=== PATIENT | male | born 1945 | race Caucasian/White ===

== ENCOUNTER 2017-11-05 05:02 | Day surgery (SDC) | payer OTHER ==
[2017-10-18 09:26] VITALS: BMI 34.4
[2017-11-05] MEDS ORDERED: SUCCINYLCHOLINE CHLORIDE 200 MG/10 ML VIAL ONE (15:17)
[2017-11-05] MEDS ORDERED: MIDAZOLAM HCL 2 MG/2 ML SINGLE DOSE VIAL ONE (15:17)
[2017-11-05] MEDS ORDERED: PROPOFOL 20 ML ONE (15:17)
[2017-11-05] MEDS ORDERED: ceFAZolin SODIUM 1 GM VIAL IVPB ONE (15:26)
[2017-11-05] MEDS ORDERED: DEXAMETHASONE SOD PHOSPHATE 4 MG/1 ML VIAL ONE (15:32)
[2017-11-05] MEDS ORDERED: ceFAZolin SODIUM 1 GM VIAL ONE (15:32)
[2017-11-05] MEDS ORDERED: LIDOCAINE HCL/PF 2% SDV 5ML VIAL ONE (15:32)
[2017-11-05] MEDS ORDERED: oxyCODONE HCL 5 MG TABLET PO PRN (16:09)
[2017-11-05] MEDS ORDERED: ONDANSETRON 4 MG/2 ML VIAL IVPUSH PRN (16:09)
[2017-11-05] MEDS ORDERED: ACETAMINOPHEN 325 MG TABLET (FP) PO PRN (16:10)
[2017-11-05] MEDS ORDERED: LACTATED RINGERS SOLUTION 1,000 ML IV SCH (16:15)
[2017-11-05] MEDS ORDERED: oxyCODONE HCL 5 MG TABLET PO ONE (16:30)
[2017-11-05] MEDS ORDERED: ACETAMINOPHEN 325 MG TABLET (FP) PO ONE (16:30)
[2017-11-05 17:07] VITALS: TEMP 98.3
--- NOTE | 2017-11-05 18:35 | OP ---
DATE OF OPERATION: 11/05/2017 PREOPERATIVE DIAGNOSIS: Left tense hydrocele. POSTOPERATIVE DIAGNOSIS: Left tense hydrocele. OPERATIVE PROCEDURE: Left hydrocelectomy. ANESTHESIA: General. DESCRIPTION: Under above-stated anesthesia, patient is prepped and draped in the usual sterile manner. He was placed in the supine position. A vertical midline incision was made over the left duong-scrotum. This was carried down through skin and subcutaneous tissue. Tunica vaginalis was then opened. Approximately 60 mL of straw-colored fluid was drained. The testis was brought out the wound. The appendix testis was cauterized. The tunica was then imbricated on itself and sutured around the cord using 3-0 running interlocking Vicryl suture ligatures. A large part of tunica was sent for pathology. Hemostasis was secured with electrocoagulation. The wound was irrigated. The testis was placed back in the left hemiscrotum. A stab wound was made in the most dependent portion of the left hemiscrotum and a half-inch Leola was brought out. The skin was closed with 2 layers, the first layer of dartos with 3-0 Vicryl suture ligature. The skin was closed with 4-0 mattress sutures. The Leola drain was anchored using 3-0 Vicryl suture ligature. Pressure dressing was applied. The patient tolerated the procedure well. He returned to the recovery room in good condition. Carol [id number]
[2017-11-05 18:52] VITALS: BP 137/78; PULSE 74
--- NOTE | 2017-11-07 16:25 | PATH ---
Surgical Pathology Report Patient Name: DEYVI CARNES [facility]. Rec. #: [id number] /Age/Gender: 1945 (Age: 72) / M Account: [id number] Location: [facility] SURGICAL Taken: 11/05/2017 Received: 11/06/2017 Reported: 11/07/2017 Physicians: May Jimenez M.D. Specimen(s) Received LEFT HYDROCELE Clinical History Left hydrocele Final Diagnosis HYDROCELE, LEFT, HYDROCELECTOMY: FIBROMEMBRANOUS TO FIBROMUSCULAR TISSUE CONSISTENT WITH HYDROCELE SAC. Electronically Signed Shobha Jefferson M.D. Gross Description Received in formalin labeled "left hydrocele," is a 3.0 x 2.2 x 1.0 cm adkins-rae, saccular portion of fibromembranous tissue, consistent with a hydrocele. Blacksmith Assistant sections are submitted in one cassette. /11/06/2017 saudi11/06/2017
== END 2017-11-05 18:30 | disposition home or self-care (01) ==
LOC: JASU-SURG 05:02
PROVIDERS: ATTEND Urology
PROC: 0VB70ZZ Excision of Left Tunica Vaginalis, Open Approach (ICD-10-PCS; principal; 2017-11-05 13:00)
DX: N43.2 Other hydrocele (principal)
CPT/HCPCS: 88304-TC; 94760

== ENCOUNTER 2018-04-23 13:05 | Emergency (ER) | payer OTHER ==
[2018-04-23 13:15] VITALS: BMI 36.1
--- NOTE | 2018-04-23 13:45 | PDOC ---
History of Present Illness - General Chief Complaint: Rectal Bleed Stated Complaint: BLEEDING Time Seen by Provider: 04/23/18 13:41 - History of Present Illness Initial Comments: 72yo M with PMH of colon cancer s/p colectomy in 2014, hernia repair in November 2017 , in remission; lymphoma s/p chemotherapy, in remission; HTN, HLD, presenting with rectal bleed. Patient reports that bleeding started three days ago. He noticed red blood when he wiped and kept a towel surrounding the rectal area overnight which he found was drenched with dark blood in the morning. Patient reports that stool is brown in color with normal consistency. Denies history of hemorrhoids. Has never had rectal bleeding in the past. Patient also mentions some one year of dyspnea on exertion and intermittent difficulty swallowing saliva. Has never had an EGD. Last colonoscopy was performed by Dr. Lazar in Aug 2017 which did not show acute pathology. Denies fever, chills, chest pain, hematuria, or dysuria. Past History - Past Medical History Allergies/Adverse Reactions: Allergies Allergy/AdvReac Type Severity Reaction Status Date / Time No Known Drug Allergies Allergy Verified 04/23/18 13:13 Home Medications: Ambulatory Orders NK [No Known Home Medication] 04/23/18 Anemia: No Asthma: No Cancer: Yes (colon, lymphoma) Cardiac Disorders: No CVA: No COPD: No CHF: No Dementia: No Diabetes: No GI Disorders: No Disorders: Yes (HYDROCELE) HTN: Yes Hypercholesterolemia: Yes Liver Disease: No Seizures: No Thyroid Disease: No - Surgical History Abdominal Surgery: Yes (ABDOMINAL HERNIA) Cardiac Surgery: No Lung Surgery: No Neurologic Surgery: No Orthopedic Surgery: Yes (BILATERAL KNEE REPLACEMENT) - Immunization History Immunization Up to Date: Yes - Suicide/Smoking/Psychosocial Hx Smoking History: Former smoker Have you smoked in the past 12 months: No If you are a former smoker, when did you quit?: 10 years ago Information on smoking cessation initiated: No Hx Alcohol Use: Yes (1 BEER PER WEEK) Drug/Substance Use Hx: No Substance Use Type: None Hx Substance Use Treatment: No Review of Systems - Review of Systems Comments:: Constitutional: no fever, no chills HEENT: no throat pain, no vision changes Cardiovascular: no chest pain, +dyspnea on exertion Respiratory: no cough, no shortness of breath Gastrointestinal: no abdominal pain, no nausea, no vomiting Genitourinary: no dysuria, no frequency Musculoskeletal: no myalgia, no arthralgia Skin: no rash, no itching Neurologic: no headache, no dizziness *Physical Exam - Vital Signs Last Vital Signs Temp Pulse Resp BP Pulse Ox 98.3 F 85 18 158/87 97 04/23/18 13:14 04/23/18 13:14 04/23/18 13:14 04/23/18 13:14 04/23/18 13:14 - Physical Exam Comments: General: Awake, alert, and fully oriented, in no acute distress Head: no signs of trauma Eyes: EOMI, sclera anicteric ENT: Moist mucus membranes Neck: Normal ROM, supple Lungs: Lungs clear, Normal breath sounds Cardio: Regular rhythm, S1 and S2 present Abdomen: Soft, nontender, bowel sounds present. No guarding, no rebound, no masses Extremities: Normal range of motion, Distal pulses present SKIN: Warm, Dry, normal turgor Neurologic: Cranial nerves II through XII grossly intact. Normal speech Rectal: The skin is without erythema or induration. No external hemorrhoids, fissures, skin tags, warts, or discharge. Sphincter tone normal. There are no masses palpated on digital exam. ED Treatment Course - LABORATORY CBC & Chemistry Diagram: 04/23/18 20:00 04/23/18 16:02 Medical Decision Making - Medical Decision Making 72yo M with PMH of colon cancer s/p colectomy in 2014, hernia repair in November 2017 , in remission; lymphoma s/p chemotherapy, in remission; HTN, HLD, presenting with rectal bleed. -DDX includes colon cancer recurrence, hemorrhoids, fissures, upper GI bleed -Labs: HgB=14.9, no leukocytosis, FOBT positive -EKG, rate 71, QTc 415, NSR -pending CTA and repeat HgB. If there is no acute pathology and hgb is stable, may discharge with outpatient follow-up. His oncologist is in [place] and his family medicine and GI physicians are here. Patient states that he is willing to follow-up with any of these doctors this week. -Care assumed by Dr. Sanchez *DC/Admit/Observation/Transfer Diagnosis at time of Disposition: Rectal bleeding - Discharge Dispostion Disposition: HOME Condition at time of disposition: Stable - Referrals Referrals: Hernan Lazar MD [Staff Physician] - - Patient Instructions Printed Discharge Instructions: DI for Rectal Bleeding Additional Instructions: Please follow-up with Dr. Lazar of gastroenterology promptly. Return immediately for severe pain, fever, recurrent significant bleeding. - Post Discharge Activity
--- NOTE | 2018-04-23 14:40 | PDOC ---
Attending Attestation - HPI HPI: This patient is a 72 year old Greek speaking male, with PMHx of colon cancer s/ p hemicolectomy (2014), hernia repair (November 2017), HTN, HLD, lymphoma s/p chemo, s/p port, who presents with 3 days of rectal bleeding. Patient states that he notes bright red blood per rectum. He states that he uses a towel overnight and when he wakes up it is drenched in blood. Last colonoscopy was on 08/28 and he states that it was normal. Denies hematochezia. Denies abdominal or any other pain. Oncologist: In [place] Surgical Hx: s/p colectomy 01/19, s/p rt ACW mediport, hernia repair Social Hx: denies recent smoking or alcohol use - Physicial Exam PE: GENERAL: Awake, alert, and fully oriented, in no acute distress HEAD: No signs of trauma EYES: PERRLA, EOMI, sclera anicteric, conjunctiva clear ENT: Auricles normal inspection, hearing grossly normal, nares patent, oropharynx clear without exudates. MOUTH: Poor dentition LUNGS: Breath sounds equal, clear to auscultation bilaterally. No wheezes, and no crackles HEART: Regular rate and rhythm, normal S1 and S2, no murmurs, rubs or gallops ABDOMEN: Soft, nontender, normoactive bowel sounds. No guarding, no rebound. No masses EXTREMITIES: Normal range of motion, no edema. No clubbing or cyanosis. No cords, erythema, or tenderness NEUROLOGICAL: Cranial nerves II through XII grossly intact. Normal speech, normal gait SKIN: Not pale. Warm, Dry, normal turgor, no rashes or lesions noted. <Janina De La Cruz - Last Filed: 04/23/18 15:23> - Resident Resident Name: Whitney De La Garza - ED Attending Attestation I have performed the following: I have examined & evaluated the patient, The case was reviewed & discussed with the resident, I agree w/resident's findings & plan, Exceptions are as noted - Medical Decision Making 04/23/18 14:40 I, Dr. Chely Jhaveri, DO, attest that this document has been prepared under my direction and personally reviewed by me in its entirety. I further attest, that it accurately reflects all work, treatment, procedures and medical decision -making performed by me. 04/23/18 15:11 a/p: 72yo male with hx of colon ca s/p resection and hx of lymphoma -pt with rectal bleeding - sometimes dark red and leaks out at night while sleeping, sometimes bright red -pt denies lightheaded or dizziness -no abd pain -no pain with defecation -will send labs, rectal exam -will obtain ct abd/pelvis with iv contrast only <Chely Jhaveri - Last Filed: 04/23/18 15:56> Heart Score/ECG Review - ECG Intrepretation Comment:: 04/23/18 15:55 sinus at 72, incomplete RBBB, lafb, no acute st/t wave findings, lvh <Chely Jhaveri - Last Filed: 04/23/18 15:56>
[2018-04-23 15:19] LABS: BASO % 0.4 % (0-2.0); EOS % 2.8 % (0-4.5); HEMATOCRIT 46.7 % (35.4-49); HEMOGLOBIN 14.9 GM/dL (11.7-16.9); LYMPH % 27.6 % (8-40); MCH 26.9 pg (25.7-33.7); MEAN PLT VOLUME 10.1 fl (7.5-11.1); MONO % 10.1 % (3.8-10.2); NEUT % 59.1 % (42.8-82.8); PLATELET COUNT 207 K/MM3 (134-434); RBC 5.56 M/mm3 (4.00-5.60); RDW 15.3 % (11.9-15.9)
[2018-04-23] MEDS ORDERED: SODIUM CHLORIDE 0.9% 1000 ML INFUS.BAG IV ONE (15:47)
[2018-04-23 16:27] VITALS: BP 128/78; PULSE 81; TEMP 98.4
[2018-04-23 16:56] LABS: INR 0.92 (0.83-1.09); PROTHROMBIN TIME (PATIENT) 10.8 SEC (9.7-13.0)
[2018-04-23 17:03] LABS: ALBUMIN 3.4 g/dl (3.4-5.0); ALK PHOS 76 U/L (45-117); ANION GAP 7 MMOL/L (8-16); BILIRUBIN,TOTAL 0.2 mg/dL (0.2-1); BLOOD UREA NITROGEN 15 mg/dL (7-18); CALCIUM 9.1 mg/dL (8.5-10.1); CHLORIDE 108 mmol/L (98-107); CO2 26 mmol/L (21-32); CREATININE 0.9 mg/dL (0.55-1.3); GLUCOSE,RANDOM 81 mg/dL (74-106); POTASSIUM 4.1 mmol/L (3.5-5.1); SGOT/AST 12 U/L (15-37); SGPT/ALT 20 U/L (13-61); SODIUM 141 mmol/L (136-145); TOT PROT 6.6 g/dl (6.4-8.2)
[2018-04-23 17:23] LABS: URINE APPEARANCE CLEAR; URINE BILIRUBIN NEGATIVE (<2.0 mg/dL); URINE COLOR LTYELLOW; URINE GLUCOSE (UA) NEGATIVE (NEGATIVE); URINE KETONE NEGATIVE (NEGATIVE); URINE LEUK ESTERASE TRACE (NEGATIVE); URINE NITRITE NEGATIVE (NEGATIVE); URINE PROTEIN NEGATIVE (NEGATIVE); URINE UROBILINOGEN NEGATIVE mg/dL (0.2-1.0)
[2018-04-23 20:50] LABS: BASO % 0.9 % (0-2.0); EOS % 2.8 % (0-4.5); HEMATOCRIT 44.3 % (35.4-49); HEMOGLOBIN 14.2 GM/dL (11.7-16.9); LYMPH % 26.6 % (8-40); MCH 26.8 pg (25.7-33.7); MCHC 32.1 g/dl (32.0-35.9); MEAN CELL VOLUME 83.5 fl (80-96); MEAN PLT VOLUME 10.1 fl (7.5-11.1); MONO % 7.9 % (3.8-10.2); NEUT % 61.8 % (42.8-82.8); PLATELET COUNT 180 K/MM3 (134-434); RBC 5.31 M/mm3 (4.00-5.60); RDW 15.9 % (11.9-15.9); WHITE BLOOD COUNT 4.5 K/mm3 (4.0-10.0)
--- NOTE | 2018-04-23 23:00 | PDOC ---
*Physical Exam - Vital Signs Last Vital Signs Temp Pulse Resp BP Pulse Ox 98.4 F 81 18 128/78 98 04/23/18 16:26 04/23/18 16:26 04/23/18 16:26 04/23/18 16:26 04/23/18 16:26 - Physical Exam Comments: 04/23/18 22:57 Patient endorsed to me by Dr. Jhaveri. Patient is a 72-year-old male with history of colon CA, status post partial colectomy who presented to the ER with 2 days of rectal bleeding. In the ER, patient is awake and alert, hemodynamically stable. Patient reports that he has not had an episode of rectal bleeding since the morning of the day of arrival. Serial hematocrits revealed decrease from 46-[address] of abdomen and pelvis revealed questionable thickening of the colonic mucosa to the brief segment of the sigmoid colon which may be related to mild ischemic colitis. I discussed the case with Dr. Lazar of GI. Patient is stable for discharge with outpatient follow-up at this time. Patient is currently symptom-free and tolerates by mouth solids and liquids. I discussed the CAT scan results and the plan of care with the patient and he is expressed understanding. Patient will be discharged with prompt outpatient follow-up. ED Treatment Course - LABORATORY CBC & Chemistry Diagram: 04/23/18 20:00 04/23/18 16:02 - ADDITIONAL ORDERS Additional order review: Laboratory Results 04/23/18 04/23/18 04/23/18 16:02 16:00 15:35 PT with INR 10.80 INR 0.92 PTT (Actin FS) Sodium 141 Potassium 4.1 Chloride 108 H Carbon Dioxide 26 Anion Gap 7 L BUN 15 Creatinine 0.9 Creat Clearance w eGFR > 60 Random Glucose 81 Lactic Acid Calcium 9.1 Total Bilirubin 0.2 AST 12 L ALT 20 Alkaline Phosphatase 76 Total Protein 6.6 Albumin 3.4 Urine Color Ltyellow Urine Appearance Clear Urine pH 5.0 Ur Specific [place] 1.017 Urine Protein Negative Urine Glucose (UA) Negative Urine Ketones Negative Urine Blood 1+ H Urine Nitrite Negative Urine Bilirubin Negative Urine Urobilinogen Negative Ur Leukocyte Esterase Trace Urine WBC (Auto) 3 Urine RBC (Auto) 4 Stool Occult Blood Blood Type Antibody Screen 04/23/18 04/23/18 04/23/18 15:00 14:49 14:30 PT with INR INR PTT (Actin FS) Sodium Potassium Chloride Carbon Dioxide Anion Gap BUN Creatinine Creat Clearance w eGFR Random Glucose Lactic Acid 1.0 Calcium Total Bilirubin AST ALT Alkaline Phosphatase Total Protein Albumin Urine Color Urine Appearance Urine pH Ur Specific [place] Urine Protein Urine Glucose (UA) Urine Ketones Urine Blood Urine Nitrite Urine Bilirubin Urine Urobilinogen Ur Leukocyte Esterase Urine WBC (Auto) Urine RBC (Auto) Stool Occult Blood Positive Blood Type Cancelled Antibody Screen Cancelled 04/23/18 04/23/18 14:30 14:30 PT with INR INR PTT (Actin FS) 27.0 Sodium Cancelled Potassium Cancelled Chloride Cancelled Carbon Dioxide Cancelled Anion Gap Cancelled BUN Cancelled Creatinine Cancelled Creat Clearance w eGFR Cancelled Random Glucose Cancelled Lactic Acid Calcium Cancelled Total Bilirubin Cancelled AST Cancelled ALT Cancelled Alkaline Phosphatase Cancelled Total Protein Cancelled Albumin Cancelled Urine Color Urine Appearance Urine pH Ur Specific [place] Urine Protein Urine Glucose (UA) Urine Ketones Urine Blood Urine Nitrite Urine Bilirubin Urine Urobilinogen Ur Leukocyte Esterase Urine WBC (Auto) Urine RBC (Auto) Stool Occult Blood Blood Type Antibody Screen 04/23/18 04/23/18 20:00 14:30 RBC 5.31 5.56 MCV 83.5 84.0 MCHC 32.1 32.0 RDW 15.9 15.3 MPV 10.1 10.1 Neutrophils % 61.8 59.1 Lymphocytes % 26.6 27.6 Monocytes % 7.9 10.1 Eosinophils % 2.8 2.8 Basophils % 0.9 0.4 - Medications Given in the ED: ED Medications Discontinued Medications Generic Name Dose Route Start Last Admin Trade Name Freq PRN Reason Stop Dose Admin Sodium Chloride 1,000 ml 04/23/18 15:47 04/23/18 16:12 Normal Saline - IV 04/23/18 15:48 1,000 ml ONCE ONE Administration *DC/Admit/Observation/Transfer Diagnosis at time of Disposition: Rectal bleeding - Discharge Dispostion Disposition: HOME Condition at time of disposition: Stable - Referrals Referrals: Hernan Lazar MD [Staff Physician] - - Patient Instructions Printed Discharge Instructions: DI for Rectal Bleeding Additional Instructions: Please follow-up with Dr. Lazar of gastroenterology promptly. Return immediately for severe pain, fever, recurrent significant bleeding. - Post Discharge Activity
--- NOTE | 2018-04-24 09:22 | EKG ---
Test Reason : Blood Pressure : / mmHG Vent. Rate : 071 BPM Atrial Rate : 071 BPM P-R Int : 192 ms QRS Dur : 110 ms QT Int : 382 ms P-R-T Axes : 055 -50 038 degrees QTc Int : 415 ms NORMAL SINUS RHYTHM INCOMPLETE RIGHT BUNDLE BRANCH BLOCK LEFT ANTERIOR FASCICULAR BLOCK VOLTAGE CRITERIA FOR LEFT VENTRICULAR HYPERTROPHY ABNORMAL ECG WHEN COMPARED WITH ECG OF 18-OCT-2017 08:47, NO SIGNIFICANT CHANGE WAS FOUND Confirmed by BRIAN PEGUERO MD ([id number]) on 04/24/2018 9:21:34 AM Referred By: Confirmed By:BRIAN PEGUERO MD
== END 2018-04-24 01:01 | disposition home or self-care (01) ==
LOC: JER 13:05
PROC: 3E0337Z Introduction of Electrolytic and Water Balance Substance into Peripheral Vein, Percutaneous Approach (ICD-10-PCS; principal; 2018-04-23)
DX: K62.5 Hemorrhage of anus and rectum (principal); Z85.038 Personal history of other malignant neoplasm of large intestine; I10 Essential (primary) hypertension; E78.5 Hyperlipidemia, unspecified; Z87.891 Personal history of nicotine dependence
CPT/HCPCS: 36415; 71046-TC-FY; 74174-TC; 80053; 81003; 81015; 82272; 83605; 85025; 85610; 85730; 87086; 93005; 93010; 99284-25; J7030

== ENCOUNTER 2018-12-31 01:00 | Emergency (ER) | payer OTHER ==
[2018-12-31] MEDS ORDERED: diphenhydrAMINE HCL 25 MG CAPSULE (FP) PO ONE (01:15)
[2018-12-31 01:19] VITALS: BP 138/91; PULSE 74; TEMP 97.6; BMI 37.1
[2018-12-31] MEDS ORDERED: predniSONE 20 MG TABLET (UD) PO ONE (01:26)
[2018-12-31] MEDS ORDERED: RANITIDINE HCL 150 MG TABLET (FP) PO ONE (01:26)
--- NOTE | 2018-12-31 01:28 | PDOC ---
History of Present Illness - General Chief Complaint: Allergic Reaction Stated Complaint: ALLERGIC REACTION Time Seen by Provider: 12/31/18 01:13 History Source: Patient Exam Limitations: No Limitations - History of Present Illness Initial Comments: 12/31/18 01:27 72yo M with PMH of colon cancer s/p colectomy in 2014, hernia repair in November 2017 , in remission; lymphoma s/p chemotherapy, in remission; HTN, HLD, PVD presenting with rash x 1 day. he developed urticaria yesterday. he has been taking plavix daily x 1 week beginning 12/20/18 for PVD no cp/sob, dizziness, javed, abdominal pain, n/v/d. no outdoor exposures or allergens. no new detergents or soaps. no food triggers. no travel. no infectious sx. no prior history of rash/allergic reaction. 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 (while he was instructed to take 40mg - 30mg - 20mg taper over the week) PMD Dr Jimenez [facility], Dr Conklin 12/31/18 01:27 12/31/18 01:28 Past History - Past Medical History Allergies/Adverse Reactions: Allergies Allergy/AdvReac Type Severity Reaction Status Date / Time No Known Drug Allergies Allergy Verified 12/31/18 01:19 Home Medications: Ambulatory Orders Diphenhydramine [Benadryl -] 50 mg PO QID PRN #30 capsule 12/31/18 Famotidine [Pepcid -] 20 mg PO BID #14 tablet 12/31/18 Prednisone [Prednisone 50 MG TABLETS] 50 mg PO DAILY #4 tablet 12/31/18 Anemia: No Asthma: No Cancer: Yes (colon, lymphoma) Cardiac Disorders: No CVA: No COPD: No CHF: No Dementia: No Diabetes: No GI Disorders: No Disorders: Yes (HYDROCELE) HTN: Yes Hypercholesterolemia: Yes Liver Disease: No Seizures: No Thyroid Disease: No - Surgical History Abdominal Surgery: Yes (ABDOMINAL HERNIA) Cardiac Surgery: No Lung Surgery: No Neurologic Surgery: No Orthopedic Surgery: Yes (BILATERAL KNEE REPLACEMENT) - Immunization History Immunization Up to Date: Yes - Suicide/Smoking/Psychosocial Hx Smoking History: Never smoked Have you smoked in the past 12 months: No If you are a former smoker, when did you quit?: 10 years ago Information on smoking cessation initiated: No Hx Alcohol Use: No Drug/Substance Use Hx: No Substance Use Type: None Hx Substance Use Treatment: No Review of Systems - Review of Systems Able to Perform ROS?: Yes Comments:: 12/31/18 01:30 Constitutional: no fevers or chills. HEENT: no headache or dizziness. No congestion. No visual/hearing disturbances. CVS: no cp or syncope. Resp: no sob. No cough. Gastrointestinal: no abdominal pain, nausea or vomiting. Genitourinary: no urinary sx, hematuria. MUSCULOSKELETAL: No joint pain and swelling. No neck or back pain. SKIN: +RASH, +URTICARIA Hematologic: no easy bruising/bleeding. NEUROLOGIC: No headache, dizziness, LOC or altered mental status. No weakness, numbness or tingling. Psych: no anxiety or depression Allergic/Immunologic: no known allergies; +urticaria/rash All other systems reviewed and negative, or as documented in HPI. *Physical Exam - Vital Signs Last Vital Signs Temp Pulse Resp BP Pulse Ox 97.6 F 74 18 138/91 96 12/31/18 01:00 12/31/18 01:00 12/31/18 01:00 12/31/18 01:00 12/31/18 01:00 - Physical Exam Comments: 12/31/18 01:31 General: Well appearing, awake and alert, NAD. HEENT: NCAT, PERRL, EOMI, clear conjunctiva, anicteric, moist mucus membranes, clear oropharynx, no oral lesions.. no mucosal involvement. airway patent. normal phonation. Neck: neck supple, FROM Resp: CTAB, normal and even respirations, no respiratory distress CVS: RRR, no murmurs, 2+ peripheral pulses throughout, no peripheral edema Abdomen: soft, NTND, no peritoneal signs. Back: nontender, normal inspection and ROM MSK: no edema, LAMA x4, ROM intact. No clubbing or cyanosis. normal bulk and tone. Neuro: alert, no focal neuro deficits. Skin: warm and well perfused, cap refill <2 sec, normal color; urticarial rash with blanching to chest, abdomen, upper inner thighs and bilateral arms. no desquamitation. no petechiae. Medical Decision Making - Medical Decision Making 12/31/18 01:32 DDx. allergic reaction: hypersensitivity reaction, allergic reaction, anaphylaxis, hives/urticaria. drug rash. dermatitis. serum sickness. vasculitis. medication side effect. -No fevers or systemic findings, clinically well appearing. no mucosal involvement so doubt SJS/TEN. airway patent, doubt anaphylaxis or Dress syndrome. - No evidence of erythema multiforme, SJS/TEN, Lyme, cellulitis, necrotizing fasciitis, no angioedema, meningococcemia, eli mountain spotted fever. - given steroids, benadryl CONSTRUCTION CONTRACTOR, H2 estiven with clinical improvement. VS wnl, stable, no hypotension. - instructions on avoiding triggers, such as plavix until cleared reviewed and understood; prednisone x 4 more days - proper dosing instructions given confusion prompting presentation, benadryl Q6-8 hr ATC x 3 days, pepcid for dual antihistamine relief. - instructions on prednisone use provided, as pt was not clear on directions. - hold off on plavix until further notice and discuss with doctor. Does not appear at this time to be erythema multiforme, bullous, SJS, TEN; no evidence at this time to suggest RMSF or endocarditis or Lyme disease; patient looks well, nontoxic and is tolerating oral intake; no neurologic signs or symptoms; no headache or photophobia or neck pain; no ev of sepsis; question viral exanthem; afebrile; appropriate for initial o/p tx; d/w pt importance of f /u and pt agrees/understands; told pt to return to nearest ER immediately for any worsening sx incl but not limited to: fever, spreading rash, pain, sore throat, headache, dizziness, chest pain, trouble breathing, or any ssx concerning to the patient. I did d/w pt the aforementioned ddx as possibilities and pt understands to f/u even if better and to return to ER if un-changed/ worse. Pt understands these instructions on d/c and is comfortable with discharge plan. 12/31/18 10:58 *DC/Admit/Observation/Transfer Diagnosis at time of Disposition: Urticaria - Discharge Dispostion Disposition: HOME Condition at time of disposition: Good Decision to Admit order: No - Prescriptions Prescriptions: Diphenhydramine [Benadryl -] 50 mg PO QID PRN #30 capsule PRN Reason: rash Famotidine [Pepcid -] 20 mg PO BID #14 tablet Prednisone [Prednisone 50 MG TABLETS] 50 mg PO DAILY #4 tablet - Referrals Referrals: Margot Jimenez MD [Primary Care Provider] - Aleksandra Conklin MD [Non Staff, Medical] - - Patient Instructions Printed Discharge Instructions: DI for General Allergic Reactions, DI for Adverse Drug Reaction -- Allergic Additional Instructions: Please follow-up with your primary doctor(s) Dr Jimenez and Dr Conklin ( cardiovascular) within 2-3 days. Please avoid any known triggers of your allergies. hold off on plavix as this could be a trigger We recommend you see an [employer] - (check with your insurance before making any appointments). You were given a copy of the results from any tests performed today in the Emergency Department which have results available. Show these to your doctor(s). Some of the tests we sent may not have results yet so please call or have your doctor call the Emergency Department to follow up on all results. We have sent a prescription for prednisone to your pharmacy. Please pick it up as soon as possible and use as directed (1 tablet once daily for 4 more days). Take Benadryl (also called diphenhydramine) 50mg every 6-8 hours as needed for further allergy symptoms (can be purchased without a prescription) - please note that Benadryl often causes drowsiness so please do not drive, make important decisions or operate machinery until you know how it will affect you. Please return to the Emergency Department right away if you have any worsening or new shortness of breath, changes in your voice, tightness/itching in your mouth/throat, swelling, severe hives, chest pain, high fever. There is a very small chance of a recurrence of the allergic reaction, typically in the next 24 hours. If you see the same symptoms (rash, trouble breathing, vomiting, etc) return, come back to the Emergency Department immediately. - Post Discharge Activity
[2018-12-31] MEDS ORDERED: predniSONE 20 MG TABLET (UD) ONE (01:40)
[2018-12-31] MEDS ORDERED: RANITIDINE HCL 150 MG TABLET (FP) ONE (01:40)
== END 2018-12-31 02:57 | disposition home or self-care (01) ==
LOC: JER 01:00
DX: L50.9 Urticaria, unspecified (principal); Z85.038 Personal history of other malignant neoplasm of large intestine; I10 Essential (primary) hypertension; E78.00 Pure hypercholesterolemia, unspecified; Z87.891 Personal history of nicotine dependence
CPT/HCPCS: 99281-25

== ENCOUNTER 2019-07-20 14:46 | Observation (INO) | payer OTHER ==
[2019-07-20 14:59] VITALS: BMI 34.4
--- NOTE | 2019-07-20 16:23 | PDOC ---
History of Present Illness - General Chief Complaint: Chest Pain Stated Complaint: SENT BY PCP/CHEST PAIN Time Seen by Provider: 07/20/19 16:23 History Source: Patient - History of Present Illness Initial Comments: 07/20/19 16:55 Chief complaint: Chest pain Patient is a 74-year-old male with history of colon cancer, had been on chemo but chemo was stopped in June after patient had episode of chest pain in May, had cardiac cath which was clear and they felt it was vasospasms from the chemo. Patient was doing well until yesterday. He states sometime last night he started feeling chest pain and his tongue felt heavy.Patient went to his doctor and had abnormal EKG and was sent to the ER for further evaluation. Patient is ambulatory without difficulty. Patient also has history of elevated cholesterol. Patient takes aspirin 81 daily did not take today. Patient sent from Dr. Law office for evaluation of chest pain with abnormal EKG, EKG in ER does not show the same findings of lateral changes. GENERAL/CONSTITUTIONAL: No fever, weakness. dizziness HEAD, EYES, EARS, NOSE AND THROAT: No change in vision. No ear pain or discharge. No sore throat. +Speech heavy, tongue feels heavy CARDIOVASCULAR: +chest pain RESPIRATORY: No shortness of breath or cough GASTROINTESTINAL: No pain, nausea, vomiting, diarrhea or constipation GENITOURINARY: No dysuria MUSCULOSKELETAL: No neck or back pain SKIN: No rash NEUROLOGIC: No headache, vertigo, loss of consciousness, or loss of sensation. GENERAL: The patient is awake, alert, and fully oriented, in no acute distress. HEAD: Normal with no signs of trauma. EYES: Pupils equal, round and reactive to light, sclera anicteric, conjunctiva clear. ENT: pharynx: no erythema, no exudate, uvula midline NECK: supple CHEST: clear, nontender, rr ABD: soft, nontender BACK: no tenderness or signs of injury. Extremities: Normal range of motion, questionable slight swelling to left lower extremity and left hand NEUROLOGICAL: Normal speech, normal gait. Cranial nerves II through XII grossly intact, no gross focal abnormalities SKIN: Warm, Dry 07/20/19 17:02 Past History - Past Medical History Allergies/Adverse Reactions: Allergies Allergy/AdvReac Type Severity Reaction Status Date / Time No Known Drug Allergies Allergy Verified 07/20/19 15:00 Home Medications: Ambulatory Orders Diphenhydramine [Benadryl -] 50 mg PO QID PRN #30 capsule 12/31/18 Famotidine [Pepcid -] 20 mg PO BID #14 tablet 12/31/18 Prednisone [Prednisone 50 MG TABLETS] 50 mg PO DAILY #4 tablet 12/31/18 Anemia: No Asthma: No Cancer: Yes (colon, lymphoma) Cardiac Disorders: No CVA: No COPD: No CHF: No Dementia: No Diabetes: No GI Disorders: No Disorders: Yes (HYDROCELE) HTN: Yes Hypercholesterolemia: Yes Liver Disease: No Seizures: No Thyroid Disease: No - Surgical History Abdominal Surgery: Yes (ABDOMINAL HERNIA) Cardiac Surgery: Yes (CATHETERIZATION) Lung Surgery: No Neurologic Surgery: No Orthopedic Surgery: Yes (BILATERAL KNEE REPLACEMENT) - Immunization History Immunization Up to Date: Yes - Psycho Social/Smoking Cessation Hx Smoking History: Never smoked Have you smoked in the past 12 months: No If you are a former smoker, when did you quit?: 10 years ago Hx Alcohol Use: No Drug/Substance Use Hx: No Substance Use Type: None Hx Substance Use Treatment: No *Physical Exam - Vital Signs Last Vital Signs Temp Pulse Resp BP Pulse Ox 98.3 F 85 18 195/93 H 98 07/20/19 14:56 07/20/19 14:56 07/20/19 14:56 07/20/19 14:56 07/20/19 14:56 Heart Score/ECG Review - ECG Intrepretation Comment:: 07/20/19 17:01 Slight edema to left hand and wrist, slight 1454 normal sinus rhythm at 78 QTc 442 with incomplete right bundle branch block, left fascicular block, LVH, no ST elevations or depressions ED Treatment Course - LABORATORY CBC & Chemistry Diagram: 07/20/19 17:35 07/20/19 17:35 Medical Decision Making - Medical Decision Making 07/20/19 17:03 74-year-old male with colon cancer, elevated cholesterol who had been on chemo but it was stopped after he had chest pain in May, had work-up going into June, with cardiac cath that was clean, they thought he was having vaso- spasms due to the chemo and stopped the chemo. Now patient has chest pain since yesterday and feels heaviness to the tongue, more on the left side but is able to speak, knows his words and no other deficits. Patient not sure what time this started. Patient did not take his aspirin today, will give 325 of aspirin, get cardiac work-up, head CT, patient will be need to be admitted. Case was discussed with Dr. Hernández who agreed with assessment and management, patient is outside the window to be a code rae 07/20/19 19:00 s/o M Avery [employer] for rest of evaluation, follow labs, chest xray, admit Discharge - Discharge Information Problems reviewed: Yes Clinical Impression/Diagnosis: Chest pain Qualifiers: Chest pain type: unspecified Qualified Code(s): R07.9 - Chest pain, unspecified - Follow up/Referral Referrals: Margot Jimenez MD [Primary Care Provider] - - Patient Discharge Instructions - Post Discharge Activity
[2019-07-20 18:44] LABS: BASO % 0.5 % (0-2.0); EOS % 2.1 % (0-4.5); HEMATOCRIT 40.3 % (35.4-49); HEMOGLOBIN 13.3 GM/dL (11.7-16.9); LYMPH % 30.4 % (8-40); MCH 27.9 pg (25.7-33.7); MCHC 32.9 g/dl (32.0-35.9); MEAN CELL VOLUME 84.8 fl (80-96); MONO % 8.1 % (3.8-10.2); NEUT % 58.9 % (42.8-82.8); PLATELET COUNT 207 K/MM3 (134-434); RBC 4.75 M/mm3 (4.00-5.60); RDW 14.8 % (11.9-15.9); WHITE BLOOD COUNT 5.3 K/mm3 (4.0-10.0)
[2019-07-20 19:10] LABS: ALBUMIN 3.5 g/dl (3.4-5.0); BILIRUBIN,TOTAL 0.2 mg/dL (0.2-1); CALCIUM 8.7 mg/dL (8.5-10.1); CREATININE 1.1 mg/dL (0.55-1.3); POTASSIUM 4.1 mmol/L (3.5-5.1); TOT PROT 6.6 g/dl (6.4-8.2)
[2019-07-20 19:12] LABS: INR 0.9 (0.83-1.09); PROTHROMBIN TIME (PATIENT) 10.6 SEC (9.7-13.0)
[2019-07-20 19:15] LABS: ACTIVATED PTT 29.3 SECONDS (25.2-36.5)
--- NOTE | 2019-07-20 19:21 | PDOC ---
*Physical Exam - Vital Signs Last Vital Signs Temp Pulse Resp BP Pulse Ox 98.3 F 85 18 195/93 H 98 07/20/19 14:56 07/20/19 14:56 07/20/19 14:56 07/20/19 14:56 07/20/19 14:56 - Physical Exam Cardiovascular: positive: Regular Rhythm, Regular Rate. negative: S1, S2, Edema , Murmur Extremity: positive: Normal Capillary Refill, Normal Inspection Integumentary: positive: Normal Color, Dry, Warm Neurologic: positive: check writer II-XII NML intact, Fully Oriented, Alert, Normal Mood/ Affect, Normal Response, Motor Strength 11/09 ED Treatment Course - LABORATORY CBC & Chemistry Diagram: 07/20/19 17:35 07/20/19 17:35 - ADDITIONAL ORDERS Additional order review: Laboratory Results 07/20/19 07/20/19 07/20/19 17:35 17:35 17:35 PT with INR 10.60 INR 0.90 PTT (Actin FS) 29.3 Sodium 140 Potassium 4.1 Chloride 108 H Carbon Dioxide 29 Anion Gap 3 L BUN 20.0 H Creatinine 1.1 Est GFR (CKD-EPI)AfAm 76.78 Est GFR (CKD-EPI)NonAf 66.24 Random Glucose 143 H Calcium 8.7 Total Bilirubin 0.2 AST 12 L ALT 22 Alkaline Phosphatase 86 Creatine Kinase 60 Troponin I < 0.02 Total Protein 6.6 Albumin 3.5 07/20/19 17:35 RBC 4.75 MCV 84.8 MCHC 32.9 RDW 14.8 MPV 10.0 Neutrophils % 58.9 Lymphocytes % 30.4 Monocytes % 8.1 Eosinophils % 2.1 Basophils % 0.5 ED Progress Note - Progress Note Progress Note: 07/20/19 19:19 Received patient from nurse practitioner Fern. Briefly this is a 74-year- old male with past medical history of hypertension Plan colon cancer (no active chemotherapy or radiation) presented to the emergency department as a referral from his primary doctor for abnormal EKG and chest pain. EKG sinus rhythm with rate of 78. Normal intervals present with QTC [address] elevations or depressions present. Patient is pending laboratory studies Disposition is likely admission for continued cardiac evaluation given patient' s age and history. Medical Decision Making - Medical Decision Making 07/20/19 19:25 Laboratory Tests 07/20/19 07/20/19 07/20/19 17:35 17:35 17:35 WBC 5.3 RBC 4.75 Hgb 13.3 Hct 40.3 D MCV 84.8 MCH 27.9 MCHC 32.9 RDW 14.8 Plt Count 207 MPV 10.0 Absolute Neuts (auto) 3.1 Neutrophils % 58.9 Lymphocytes % 30.4 Monocytes % 8.1 Eosinophils % 2.1 Basophils % 0.5 Nucleated RBC % 0 PT with INR 10.60 INR 0.90 PTT (Actin FS) 29.3 Sodium Potassium Chloride Carbon Dioxide Anion Gap BUN Creatinine Est GFR (CKD-EPI)AfAm Est GFR (CKD-EPI)NonAf Random Glucose Calcium Total Bilirubin AST ALT Alkaline Phosphatase Creatine Kinase 60 Troponin I < 0.02 Total Protein Albumin 07/20/19 17:35 WBC RBC Hgb Hct MCV MCH MCHC RDW Plt Count MPV Absolute Neuts (auto) Neutrophils % Lymphocytes % Monocytes % Eosinophils % Basophils % Nucleated RBC % PT with INR INR PTT (Actin FS) Sodium 140 Potassium 4.1 Chloride 108 H Carbon Dioxide 29 Anion Gap 3 L BUN 20.0 H Creatinine 1.1 Est GFR (CKD-EPI)AfAm 76.78 Est GFR (CKD-EPI)NonAf 66.24 Random Glucose 143 H Calcium 8.7 Total Bilirubin 0.2 AST 12 L ALT 22 Alkaline Phosphatase 86 Creatine Kinase Troponin I Total Protein 6.[address]5 [address] scan is read by Dr. Resendiz: Moderate atrophy. No gross evidence of focal intracranial lesion or hemorrhage is seen. Chest x-ray as read by me: Angle sharp. Cardiac silhouette is within normal limits. No focal consolidations or infiltrates are present. No significant change from study performed 04/14/2018. I will contact Dr. Law for admission. 07/20/19 20:56 Case d/w NIKOLAY Jimenez who accepts patient for obs under Dr. Graham Discharge - Discharge Information Problems reviewed: Yes Clinical Impression/Diagnosis: Chest pain Qualifiers: Chest pain type: unspecified Qualified Code(s): R07.9 - Chest pain, unspecified Condition: Fair - Admission Yes - Follow up/Referral Referrals: Margot Jimenez MD [Primary Care Provider] - - Patient Discharge Instructions - Post Discharge Activity
[2019-07-20] MEDS ORDERED: ASPIRIN 81 MG CHEWABLE TABLETS PO ONE (22:48)
[2019-07-20] MEDS ORDERED: ACETAMINOPHEN 325 MG TABLET (FP) PO PRN (22:49)
--- NOTE | 2019-07-20 22:56 | HP ---
Admitting History and Physical - Primary Care Physician PCP: - Admission Chief Complaint: chest pain History of Present Illness: 74-year-old male with history of colon cancer (s/p chemo since June after patient had episode of chest pain in May, had cardiac cath which was clear and they felt it was vasospasms from the chemo). Patient was doing well until yesterday. He states sometime last night he started feeling chest pain and his tongue felt heavy.Patient went to his doctor and had abnormal EKG and was sent to the ER for further evaluation. Patient is ambulatory without difficulty. Patient takes aspirin 81 daily did not take today. Patient sent from Dr. Law office for evaluation of chest pain with abnormal EKG, EKG in ER does not show the same findings of lateral changes. History Source: Patient Limitations to Obtaining History: No Limitations - Past Medical History Cardiovascular: Yes: HTN, Hyperlipdemia Gastrointestinal: Yes: Cancer (Colon) Heme/Onc: Yes: Other (lymphoma) Endocrine: Yes: Other (IGT). No: Diabetes Mellitus - Past Surgical History Past Surgical History: Yes: Hernia Repair, Joint Replacement (BILATERAL KNEE REPLACEMENT) - Smoking History Smoking history: Never smoked Have you smoked in the past 12 months: No If you are a former smoker, when did you quit?: 10 years ago - Alcohol/Substance Use Hx Alcohol Use: No History of Substance Use: reports: None - Social History ADL: Independent History of Recent Travel: No Home Medications - Allergies Allergies/Adverse Reactions: Allergies Allergy/AdvReac Type Severity Reaction Status Date / Time No Known Drug Allergies Allergy Verified 07/20/19 15:00 - Home Medications Home Medications: Ambulatory Orders Diphenhydramine [Benadryl -] 50 mg PO QID PRN #30 capsule 12/31/18 Famotidine [Pepcid -] 20 mg PO BID #14 tablet 12/31/18 Prednisone [Prednisone 50 MG TABLETS] 50 mg PO DAILY #4 tablet 12/31/18 Family Medical History Family History: Denies Review of Systems - Review of Systems Constitutional: reports: No Symptoms Eyes: reports: No Symptoms HENT: reports: No Symptoms Neck: reports: No Symptoms Cardiovascular: reports: Chest Pain Respiratory: reports: No Symptoms Gastrointestinal: reports: No Symptoms Genitourinary: reports: No Symptoms Musculoskeletal: reports: No Symptoms Integumentary: reports: No Symptoms Neurological: reports: Change in Speech (+Speech heavy, tongue feels heavy) Endocrine: reports: No Symptoms Hematology/Lymphatic: reports: No Symptoms Psychiatric: reports: No Symptoms Physical Examination Vital Signs: Vital Signs Temperature 98.5 F 07/20/19 19:15 Pulse Rate 66 07/20/19 19:15 Respiratory Rate 17 07/20/19 19:15 Blood Pressure 132/81 07/20/19 19:15 O2 Sat by Pulse Oximetry (%) 97 07/20/19 19:15 Constitutional: Yes: No Distress, Calm Eyes: Yes: Conjunctiva Clear, EOM Intact HENT: Yes: Atraumatic, Normocephalic Neck: Yes: Supple, Trachea Midline Cardiovascular: Yes: Regular Rate and Rhythm Respiratory: Yes: Regular, CTA Bilaterally Gastrointestinal: Yes: Normal Bowel Sounds, Soft Renal/: Yes: WNL Musculoskeletal: Yes: WNL Extremities: Yes: WNL Edema: No Peripheral Pulses WNL: Yes Neurological: Yes: Alert, Oriented Labs: CBC, BMP 07/20/19 17:35 07/20/19 17:35 Imaging - Results Chest X-ray: Report Reviewed (CXR: No acute infiltrate) Cat Scan: Report Reviewed (CT Head: moderate atrophy, no hemorrhage noted) EKG: Report Reviewed (EKG sinus rhythm with rate of 78. Normal intervals present with QTC [address] elevations or depressions.) Problem List - Problems (1) GERD (gastroesophageal reflux disease) Code(s): K21.9 - GASTRO-ESOPHAGEAL REFLUX DISEASE WITHOUT ESOPHAGITIS (2) Chest pain Code(s): R07.9 - CHEST PAIN, UNSPECIFIED Qualifiers: Chest pain type: unspecified Qualified Code(s): R07.9 - Chest pain, unspecified (3) Colon cancer Code(s): C18.9 - MALIGNANT NEOPLASM OF COLON, UNSPECIFIED Assessment/Plan 74-year-old male with history of colon cancer (s/p chemo since June after patient had episode of chest pain in May, had cardiac cath which was clear and they felt it was vasospasms from the chemo). Arrived to ED for Chest pain. # chest pain tele obs -EKG sinus rhythm with rate of 78, no s/t changes -trop: negative -CXR: no acute infiltrate -CT head: no acute infract/ hemorrhage - given ASA 324mg x1, tylenol 650 q6h prn - follow up cardiology in AM # GERD - continue with pepcid 20 mg BID #colon cancer (s/p chemo since June) VTE: early ambulation Dispo: tele obs Diet: cardiac diet Visit type - Emergency Visit Emergency Visit: Yes ED Registration Date: 07/20/19 Care time: The patient presented to the Emergency Department on the above date and was hospitalized for further evaluation of their emergent condition. - New Patient This patient is new to me today: Yes Date on this admission: 07/20/19 - Critical Care Critical Care patient: No
[2019-07-20] MEDS ORDERED: ASPIRIN 81 MG CHEWABLE TABLETS ONE (23:27)
--- NOTE | 2019-07-21 10:43 | PN ---
Progress Note (short form) - Note Progress Note: has heaviness in tongue- tells me his speech is slow He still has mild chest discomfort with left arm to be heavy no headaches Vital Signs - 24 hr 07/20/19 07/20/19 07/21/19 14:56 19:15 07:15 Temperature 98.3 F 98.5 F 98.2 F Pulse Rate 85 Pulse Rate [ 66 68 Left Apical] Respiratory 18 17 17 Rate Blood Pressure 195/93 H Blood Pressure 132/81 136/86 [Right Arm] O2 Sat by Pulse 98 97 98 Oximetry (%) 07/21/19 11:30 Temperature 97.7 F Pulse Rate Pulse Rate [ 66 Left Apical] Respiratory 16 Rate Blood Pressure Blood Pressure 135/77 [Right Arm] O2 Sat by Pulse 98 Oximetry (%) Current Medications Generic Name Dose Route Start Last Admin Trade Name Freq PRN Reason Stop Dose Admin Acetaminophen 650 mg 07/20/19 22:49 07/21/19 11:30 Tylenol - PO 650 mg Q6H PRN Administration PAIN LEVEL 1-5 Amlodipine Besylate 5 mg 07/22/19 10:00 Norvasc - PO DAILY CARROLL Aspirin 81 mg 07/21/19 13:15 Asa - PO DAILY CARROLL Atorvastatin Calcium 80 mg 07/21/19 22:00 Lipitor - PO HS CARROLL Famotidine 20 mg 07/21/19 10:00 07/21/19 11:30 Pepcid - PO 20 mg BID CARROLL Administration Laboratory Results - last 24 hr 07/20/19 07/20/19 07/20/19 17:35 17:35 17:35 WBC 5.3 RBC 4.75 Hgb 13.3 Hct 40.3 D MCV 84.8 MCH 27.9 MCHC 32.9 RDW 14.8 Plt Count 207 MPV 10.0 Absolute Neuts (auto) 3.1 Neutrophils % 58.9 Lymphocytes % 30.4 Monocytes % 8.1 Eosinophils % 2.1 Basophils % 0.5 Nucleated RBC % 0 PT with INR 10.60 INR 0.90 PTT (Actin FS) 29.3 Sodium Potassium Chloride Carbon Dioxide Anion Gap BUN Creatinine Est GFR (CKD-EPI)AfAm Est GFR (CKD-EPI)NonAf Random Glucose Calcium Total Bilirubin AST ALT Alkaline Phosphatase Creatine Kinase 60 Troponin I < 0.02 Total Protein Albumin 07/20/19 17:35 WBC RBC Hgb Hct MCV MCH MCHC RDW Plt Count MPV Absolute Neuts (auto) Neutrophils % Lymphocytes % Monocytes % Eosinophils % Basophils % Nucleated RBC % PT with INR INR PTT (Actin FS) Sodium 140 Potassium 4.1 Chloride 108 H Carbon Dioxide 29 Anion Gap 3 L BUN 20.0 H Creatinine 1.1 Est GFR (CKD-EPI)AfAm 76.78 Est GFR (CKD-EPI)NonAf 66.24 Random Glucose 143 H Calcium 8.7 Total Bilirubin 0.2 AST 12 L ALT 22 Alkaline Phosphatase 86 Creatine Kinase Troponin I Total Protein 6.6 Albumin 3.5 S1 s2 RRR Lungs clear Abd- soft , NT-- surgical scars noted no edema Moves all extremities no sensory deficits no facial droop A/p Chest pain -- second set cardiac enzyme pending -- Echo -- normal EF -- spoke with Cardiology -- recent cardiac cath in [facility] in June-- non obstructive coronaries - had STEMI last month due to chemo for colon ca Slurred speech, left arm heaviness -- CT head negative -- ordered carotid doppler -- Neurology eval HTN -- restart Amlodipine Colon Ca -- off chemo -- s/p surgery Problem List - Problems (1) TIA (transient ischemic attack) Code(s): G45.9 - TRANSIENT CEREBRAL ISCHEMIC ATTACK, UNSPECIFIED (2) Chest pain Code(s): R07.9 - CHEST PAIN, UNSPECIFIED Qualifiers: Chest pain type: unspecified Qualified Code(s): R07.9 - Chest pain, unspecified (3) Colon cancer Code(s): C18.9 - MALIGNANT NEOPLASM OF COLON, UNSPECIFIED
--- NOTE | 2019-07-21 11:08 | ECHO ---
Version: 1 Name: DEYVI CARNES Exam: Adult Echocardiogram Study Date: 07/21/2019, 10:00 AM Age: 74 Years MMode/2D Measurements & Calculations IVSd: 0.96 cm LVIDs: 2.9 cm LVIDd: 4.2 cm LVPWd: 1.30 cm LAV (MOD-bp): 30.0 ml LVOT diam: 2.26 cm Ao root diam: 3.9 cm LA dimension: 4.2 cm Doppler Measurements & Calculations MV E max darnell: 47.9 cm/sec Med E/e': 12.0 MV A max darnell: 94.8 cm/sec Med Peak E' Darnell: 4.0 cm/sec MV E/A: 0.51 Lat E/e': 6.3 Lat Peak E' Darnell: 7.6 cm/sec Ao max P.0 mmHg Ao V2 max: 121.6 cm/sec TR max darnell: 215.8 cm/sec TR max P.3 mmHg Left Ventricle The left ventricle is grossly normal size. There is mild concentric left ventricular hypertrophy. Ej ection Fraction = 60%. The transmitral spectral Doppler flow pattern is suggestive of impaired LV relaxatio n. Right Ventricle The right ventricle is normal in size and function. Atria The left atrium is mildly dilated. The right atrium is mildly dilated. Mitral Valve There is mild mitral valve thickening. There is mild mitral regurgitation. Tricuspid Valve The tricuspid valve is normal. There is mild tricuspid regurgitation. Aortic Valve There is moderate aortic sclerosis.;. Pulmonic Valve The pulmonic valve is not well visualized. Great Vessels Mild aortic root dilatation. Normal aortic arch, descending and ascending aorta. Pericardium/Pleura There is no pericardial effusion. Summary Statements The left ventricle is grossly normal size. There is mild concentric left ventricular hypertrophy. Ejection Fraction = 60%. The transmitral spectral Doppler flow pattern is suggestive of impaired LV relaxation. The right ventricle is normal in size and function. The left atrium is mildly dilated. The right atrium is mildly dilated. There is mild mitral valve thickening. There is mild mitral regurgitation. The tricuspid valve is normal. There is mild tricuspid regurgitation. There is moderate aortic sclerosis.; The pulmonic valve is not well visualized. Mild aortic root dilatation. Normal aortic arch, descending and ascending aorta There is no pericardial effusion. Clay Delatorreemberg 07/21/2019, 11:07 AM Ordering Physician: JOSE RAMON CALDERA Referring Physician: JOSE RAMON CALDERA Performed By: Lizz Pike
[2019-07-21] MEDS ORDERED: ACETAMINOPHEN 325 MG TABLET (FP) ONE (11:22)
[2019-07-21] MEDS: FAMOTIDINE 20 MG TABLET PO SCH ×2 (11:30→22:23)
--- NOTE | 2019-07-21 13:27 | CON.CARD ---
Consult Consult Specialty:: Cardiology Referred by:: Medicine Reason for Consultation:: chest pain - History of Present Illness Chief Complaint: chest pain History of Present Illness: 74M h/o colon cancer recent chemo therapy p/w chest pain. [place] pain starting night prior to admission with tongue feeling heavy and arm pain. Chest pain not exertional, constant, L sided. He was recently admitted to [facility], reportedly had MS 06/2019. Cardiac cath report reviewed from [facility], nonobstructive CAD and echo unremarkable, was told likely had coronary vasospasm from chemo. Went to PCP yesterday, noted to have abnormal EKG and was referred to ER. Currently no chest pain,palps, dizziness, dyspnea - Past Medical History Cardio/Vascular: Yes: HTN, Hyperlipdemia Gastrointestinal: Yes: Cancer (Colon) Endocrine: Yes: Other (IGT). No: Diabetes Mellitus - Past Surgical History Past Surgical History: Yes: Hernia Repair, Joint Replacement (BILATERAL KNEE REPLACEMENT) - Alcohol/Substance Use Hx Alcohol Use: No History of Substance Use: reports: None - Smoking History Smoking history: Never smoked Have you smoked in the past 12 months: No If you are a former smoker, when did you quit?: 10 years ago - Social History ADL: Independent History of Recent Travel: No Home Medications - Allergies Allergies/Adverse Reactions: Allergies Allergy/AdvReac Type Severity Reaction Status Date / Time No Known Drug Allergies Allergy Verified 07/20/19 15:00 - Home Medications Home Medications: Ambulatory Orders Diphenhydramine [Benadryl -] 50 mg PO QID PRN #30 capsule 12/31/18 Famotidine [Pepcid -] 20 mg PO BID #14 tablet 12/31/18 Prednisone [Prednisone 50 MG TABLETS] 50 mg PO DAILY #4 tablet 12/31/18 Family Medical History Family History: Unremarkable Review of Systems - Review of Systems Constitutional: reports: No Symptoms Eyes: reports: No Symptoms HENT: reports: No Symptoms Neck: reports: No Symptoms Cardiovascular: reports: No Symptoms Respiratory: reports: No Symptoms Gastrointestinal: reports: No Symptoms Genitourinary: reports: No Symptoms Musculoskeletal: reports: No Symptoms Integumentary: reports: No Symptoms Neurological: reports: No Symptoms Endocrine: reports: No Symptoms Hematology/Lymphatic: reports: No Symptoms Psychiatric: reports: No Symptoms Vital Signs: Vital Signs Temperature 97.7 F 07/21/19 11:30 Pulse Rate 66 01/14/20 11:30 Respiratory Rate 16 07/21/19 11:30 Blood Pressure 135/77 07/21/19 11:30 O2 Sat by Pulse Oximetry (%) 98 07/21/19 11:30 Constitutional: Yes: Well Nourished, No Distress, Calm Eyes: Yes: Conjunctiva Clear, EOM Intact HENT: Yes: Atraumatic, Normocephalic Neck: Yes: Supple, Trachea Midline Respiratory: Yes: Regular, CTA Bilaterally Gastrointestinal: Yes: Normal Bowel Sounds, Soft Cardiovascular: Yes: Regular Rate and Rhythm JVD: No Heart Sounds: Yes: S1, S2 Extremities: No: Cold Edema: No Integumentary: No: Jaundice Neurological: Yes: Alert, Oriented Psychiatric: No: Agitated - Other Data Labs, Other Data: CBC, BMP 07/20/19 17:35 07/20/19 17:35 INR, PTT INR 0.90 (0.83-1.09) 07/20/19 17:35 Troponin, BNP 07/20/19 07/21/19 17:35 12:34 Troponin I < 0.02 < 0.02 Troponin, BNP 07/20/19 07/21/19 17:35 12:34 Troponin I < 0.02 < 0.02 Assessment/Plan EKG: sinus,incomplete IRBBB, LAFB, stable compared to prior CXR: no congestion echo 07/2019 mild conc LVH, nl LV function, impaired LV relaxation, mildly dilated LA/RA, mild MR, mild TR, mild ao root dilation tele: sinus, artifact chest pain - recent cath report reviewed from [facility] - nonobstructive CAD 06/2019 - echo here unremarkable - trop neg x 2, EKG similar to prior - unlikely ACS, history more consistent with MSK - no further cardiac testing as inpatient GERD - manage per primary colon cancer - s/p chemotherapy - manage per onc
[2019-07-21] MEDS: ASPIRIN 81 MG CHEWABLE TABLETS PO SCH (13:33)
[2019-07-21] MEDS ORDERED: ASPIRIN 81 MG CHEWABLE TABLETS ONE (17:13)
[2019-07-21] MEDS: ATORVASTATIN CA 80 MG TABLET (FP) PO SCH (22:22)
--- NOTE | 2019-07-22 09:35 | CON.NEURO ---
Consult - History of Present Illness History of Present Illness: 74-year-old male with history of colon cancer (s/p chemo since June after patient had episode of chest pain in JUN ( was at [facility]) , had cardiac cath which was clear and they felt it was vasospasms from the chemo). Patient was doing well until yesterday. He states sometime last night he started feeling chest pain and his tongue felt heavy.Patient went to his doctor and had abnormal EKG and was sent to the ER for further evaluation. Patient is ambulatory without difficulty. Patient takes aspirin 81 daily. Feeling better now, denies any focal complaints, ie weakness, numbness ( numbness D4/D5 L, when he leans on his elbow). CT HD (-) for acute pathology - Past Medical History Cardio/Vascular: Yes: HTN, Hyperlipdemia Gastrointestinal: Yes: Cancer (Colon) Endocrine: Yes: Other (IGT). No: Diabetes Mellitus - Past Surgical History Past Surgical History: Yes: Hernia Repair, Joint Replacement (BILATERAL KNEE REPLACEMENT) - Alcohol/Substance Use Hx Alcohol Use: No History of Substance Use: reports: None - Smoking History Smoking history: Never smoked Have you smoked in the past 12 months: No If you are a former smoker, when did you quit?: 10 years ago - Social History ADL: Independent History of Recent Travel: No Home Medications - Allergies Allergies/Adverse Reactions: Allergies Allergy/AdvReac Type Severity Reaction Status Date / Time No Known Drug Allergies Allergy Verified 07/20/19 15:00 - Home Medications Home Medications: Ambulatory Orders Diphenhydramine [Benadryl -] 50 mg PO QID PRN #30 capsule 12/31/18 Famotidine [Pepcid -] 20 mg PO BID #14 tablet 12/31/18 Prednisone [Prednisone 50 MG TABLETS] 50 mg PO DAILY #4 tablet 12/31/18 Physical Exam-Neuro Vital Signs: Vital Signs Temperature 98.4 F 07/22/19 08:49 Pulse Rate 62 07/22/19 08:49 Respiratory Rate 17 07/22/19 08:49 Blood Pressure 116/68 07/22/19 08:49 O2 Sat by Pulse Oximetry (%) 97 07/22/19 08:43 Labs: CBC, BMP 07/20/19 17:35 07/20/19 17:35 INR, PTT INR 0.90 (0.83-1.09) 07/20/19 17:35 - Neuro Exam Level Of Consciousness: Yes: Alert, Oriented to Person (A/A/O x 3, EOMI, no facial, no dysarthria, no focal weakness, relfexes symmetric, ) Imaging - Results Cat Scan: Report Reviewed, Image Reviewed Problem List - Problems (1) Chest pain Code(s): R07.9 - CHEST PAIN, UNSPECIFIED Qualifiers: Chest pain type: unspecified Qualified Code(s): R07.9 - Chest pain, unspecified (2) TIA (transient ischemic attack) Code(s): G45.9 - TRANSIENT CEREBRAL ISCHEMIC ATTACK, UNSPECIFIED Assessment/Plan 74-year-old male with history of colon cancer (s/p chemo since June after patient had episode of chest pain in JUN ( was at [facility]) , had cardiac cath which was clear and they felt it was vasospasms from the chemo). Patient was doing well until yesterday. He states sometime last night he started feeling chest pain and his tongue felt heavy.Patient went to his doctor and had abnormal EKG and was sent to the ER for further evaluation. Patient is ambulatory without difficulty. Patient takes aspirin 81 daily. Feeling better now, denies any focal complaints, ie weakness, numbness ( numbness D4/D5 L, when he leans on his elbow). CT HD (-) AP : Transient dysarthria/ "heavy tongue" - resolved, no associated aphasia, focal weakness. at baseline now Isolated dysarthria, less likely stroke like event, though TIA should be ruled out check MRI BRAIN , if (-) can FU as outpt DOPPLERS (-) maintain ASA, statin, BP controlled DR DUBON
[2019-07-22] MEDS: ASPIRIN 81 MG CHEWABLE TABLETS PO SCH (10:16)
[2019-07-22] MEDS: amLODIPine BESYLATE 5 MG TABLET (FP) PO SCH (10:16)
[2019-07-22] MEDS: FAMOTIDINE 20 MG TABLET PO SCH ×2 (10:17→21:15)
--- NOTE | 2019-07-22 11:07 | PN ---
Progress Note (short form) - Note Progress Note: s: no chest pain, palps, dizziness, dyspnea. heaviness in tongue feels better. Current Medications Acetaminophen (Tylenol -) 650 mg PO Q6H PRN PRN Reason: PAIN LEVEL 1-5 Last Admin: 07/21/19 11:30 Dose: 650 mg Amlodipine Besylate (Norvasc -) 5 mg PO DAILY [facility] Last Admin: 07/22/19 10:16 Dose: 5 mg Aspirin (Asa -) 81 mg PO DAILY [facility] Last Admin: 07/22/19 10:16 Dose: 81 mg Atorvastatin Calcium (Lipitor -) 80 mg PO HS [facility] Last Admin: 07/21/19 22:22 Dose: 80 mg Famotidine (Pepcid -) 20 mg PO BID [facility] Last Admin: 07/22/19 10:17 Dose: 20 mg Vital Signs Period Temp Pulse Resp BP Sys/Castañeda Pulse Ox Last 24 Hr 97.7 F-98.4 F 60-71 13-17 109-156/59-77 95-98 Constitutional: Yes: Well Nourished, No Distress, Calm Eyes: Yes: Conjunctiva Clear, EOM Intact HENT: Yes: Atraumatic, Normocephalic Neck: Yes: Supple, Trachea Midline Respiratory: Yes: Regular, CTA Bilaterally Gastrointestinal: Yes: Normal Bowel Sounds, Soft Cardiovascular: Yes: Regular Rate and Rhythm JVD: No Heart Sounds: Yes: S1, S2 Extremities: No: Cold Edema: No Integumentary: No: Jaundice Neurological: Yes: Alert, Oriented Psychiatric: No: Agitated Assessment/Plan EKG: sinus,incomplete IRBBB, LAFB, stable compared to prior CXR: no congestion echo 07/2019 mild conc LVH, nl LV function, impaired LV relaxation, mildly dilated LA/RA, mild MR, mild TR, mild ao root dilation tele: sinus, artifact chest pain - recent cath report reviewed from [facility] - 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
--- NOTE | 2019-07-22 11:49 | PN ---
Progress Note (short form) - Note Progress Note: no chest pain or left arm to be heavy his tongue does not feel heavy or slurred Vital Signs - 24 hr 07/21/19 07/21/19 07/22/19 17:46 22:00 01:00 Temperature 98.0 F 98.3 F 98.4 F Pulse Rate 71 67 Pulse Rate [ 70 Left Apical] Respiratory 14 13 Rate Blood Pressure 156/77 138/74 Blood Pressure 125/59 L [Right Arm] O2 Sat by Pulse 95 Oximetry (%) 07/22/19 07/22/19 07/22/19 02:00 05:00 08:43 Temperature 98.3 F Pulse Rate 60 Pulse Rate [ Left Apical] Respiratory 13 15 13 Rate Blood Pressure 109/64 Blood Pressure [Right Arm] O2 Sat by Pulse 95 97 Oximetry (%) 07/22/19 07/22/19 08:49 10:02 Temperature 98.4 F 97.7 F Pulse Rate 62 Pulse Rate [ Left Apical] Respiratory 17 Rate Blood Pressure 116/68 Blood Pressure [Right Arm] O2 Sat by Pulse Oximetry (%) Current Medications Generic Name Dose Route Start Last Admin Trade Name Freq PRN Reason Stop Dose Admin Acetaminophen 650 mg 07/20/19 22:49 07/21/19 11:30 Tylenol - PO 650 mg Q6H PRN Administration PAIN LEVEL 1-5 Amlodipine Besylate 5 mg 07/22/19 10:00 07/22/19 10:16 Norvasc - PO 5 mg DAILY [facility] Administration Aspirin 81 mg 07/21/19 13:15 07/22/19 10:16 Asa - PO 81 mg DAILY [facility] Administration Atorvastatin Calcium 80 mg 07/21/19 22:00 07/21/19 22:22 Lipitor - PO 80 mg HS [facility] Administration Famotidine 20 mg 07/21/19 10:00 07/22/19 10:17 Pepcid - PO 20 mg BID [facility] Administration Laboratory Results - last 24 hr 07/21/19 12:34 Creatine Kinase 45 Troponin I < 0.02 S1 s2 RRR Lungs clear Abd- soft , NT-- surgical scars noted no edema Moves all extremities no sensory deficits no facial droop A/p Chest pain -- second set cardiac enzyme negative -- Echo -- normal EF -- spoke with Cardiology -- recent cardiac cath in [facility] in June-- non obstructive coronaries - had STEMI last month due to chemo for colon ca -- continue ASA and statins Slurred speech, left arm heaviness -- CT head negative -- carotid doppler-->negative for stenosis -- Neurology eval appreciated -- ordered MRI brain HTN -- restarted Amlodipine -- BP controlled Colon Ca -- off chemo -- s/p surgery spoke with Daughter today Problem List - Problems (1) TIA (transient ischemic attack) Code(s): G45.9 - TRANSIENT CEREBRAL ISCHEMIC ATTACK, UNSPECIFIED (2) Chest pain Code(s): R07.9 - CHEST PAIN, UNSPECIFIED Qualifiers: Chest pain type: unspecified Qualified Code(s): R07.9 - Chest pain, unspecified (3) Colon cancer Code(s): C18.9 - MALIGNANT NEOPLASM OF COLON, UNSPECIFIED
[2019-07-22] MEDS: ATORVASTATIN CA 80 MG TABLET (FP) PO SCH (21:13)
--- NOTE | 2019-07-23 09:21 | PN ---
Progress Note (short form) - Note Progress Note: 74-year-old male with history of colon cancer (s/p chemo since June after patient had episode of chest pain in JUN ( was at [facility]) , had cardiac cath which was clear and they felt it was vasospasms from the chemo). Patient was doing well until yesterday. He states sometime last night he started feeling chest pain and his tongue felt heavy.Patient went to his doctor and had abnormal EKG and was sent to the ER for further evaluation. Patient is ambulatory without difficulty. Patient takes aspirin 81 daily. Feeling better now, denies any focal complaints, ie weakness, numbness ( numbness D4/D5 L, when he leans on his elbow). CT HD (-) for acute pathology FU : MRI report reviewed ( image not uploaded on PACS) -- R CR subacute infarct otherwise doing well spoke to daughter by phone - Past Medical History Cardio/Vascular: Yes: HTN, Hyperlipdemia Gastrointestinal: Yes: Cancer (Colon) Endocrine: Yes: Other (IGT). No: Diabetes Mellitus - Past Surgical History Past Surgical History: Yes: Hernia Repair, Joint Replacement (BILATERAL KNEE REPLACEMENT) - Alcohol/Substance Use Hx Alcohol Use: No History of Substance Use: reports: None - Smoking History Smoking history: Never smoked Have you smoked in the past 12 months: No If you are a former smoker, when did you quit?: 10 years ago - Social History ADL: Independent History of Recent Travel: No Home Medications - Allergies Allergies/Adverse Reactions: Allergies Allergy/AdvReac Type Severity Reaction Status Date / Time No Known Drug Allergies Allergy Verified 07/20/19 15:00 - Home Medications Home Medications: Ambulatory Orders Diphenhydramine [Benadryl -] 50 mg PO QID PRN #30 capsule 12/31/18 Famotidine [Pepcid -] 20 mg PO BID #14 tablet 12/31/18 Prednisone [Prednisone 50 MG TABLETS] 50 mg PO DAILY #4 tablet 12/31/18 Physical Exam-Neuro Vital Signs: Vital Signs Temperature 98.2 F 07/23/19 06:00 Pulse Rate 58 L 07/23/19 06:00 Respiratory Rate 16 07/23/19 06:00 Blood Pressure 103/67 07/23/19 06:00 O2 Sat by Pulse Oximetry (%) 97 07/23/19 05:00 Labs: CBCD WBC 5.3 K/mm3 (4.0-10.0) 07/20/19 17:35 RBC 4.75 M/mm3 (4.00-5.60) 07/20/19 17:35 Hgb 13.3 GM/dL (11.7-16.9) 07/20/19 17:35 Hct 40.3 % (35.4-49) D 07/20/19 17:35 MCV 84.8 fl (80-96) 07/20/19 17:35 MCHC 32.9 g/dl (32.0-35.9) 07/20/19 17:35 RDW 14.8 % (11.9-15.9) 07/20/19 17:35 Plt Count 207 K/MM3 (134-434) 07/20/19 17:35 MPV 10.0 fl (7.5-11.1) 07/20/19 17:35 CMP Sodium 140 mmol/L (136-145) 07/20/19 17:35 Potassium 4.1 mmol/L (3.5-5.1) 07/20/19 17:35 Chloride 108 mmol/L (98-107) H 07/20/19 17:35 Carbon Dioxide 29 mmol/L (21-32) 07/20/19 17:35 Anion Gap 3 MMOL/L (8-16) L 07/20/19 17:35 BUN 20.0 mg/dL (7-18) H 07/20/19 17:35 Creatinine 1.1 mg/dL (0.55-1.3) 07/20/19 17:35 Calcium 8.7 mg/dL (8.5-10.1) 07/20/19 17:35 Total Bilirubin 0.2 mg/dL (0.2-1) 07/20/19 17:35 AST 12 U/L (15-37) L 07/20/19 17:35 ALT 22 U/L (13-61) 07/20/19 17:35 Alkaline Phosphatase 86 U/L (45-117) 07/20/19 17:35 Total Protein 6.6 g/dl (6.4-8.2) 07/20/19 17:35 Albumin 3.5 g/dl (3.4-5.0) 07/20/19 17:35 - Neuro Exam Level Of Consciousness: Yes: Alert, Oriented to Person (A/A/O x 3, EOMI, no facial, no dysarthria, no focal weakness, relfexes symmetric, ) Imaging - Results Cat Scan: Report Reviewed, Image Reviewed Problem List - Problems (1) Chest pain Code(s): R07.9 - CHEST PAIN, UNSPECIFIED Qualifiers: Chest pain type: unspecified Qualified Code(s): R07.9 - Chest pain, unspecified (2) TIA (transient ischemic attack) Code(s): G45.9 - TRANSIENT CEREBRAL ISCHEMIC ATTACK, UNSPECIFIED Assessment/Plan 74-year-old male with history of colon cancer (s/p chemo since June after patient had episode of chest pain in JUN ( was at [facility]) , had cardiac cath which was clear and they felt it was vasospasms from the chemo). Patient was doing well until yesterday. He states sometime last night he started feeling chest pain and his tongue felt heavy.Patient went to his doctor and had abnormal EKG and was sent to the ER for further evaluation. Patient is ambulatory without difficulty. Patient takes aspirin 81 daily. Feeling better now, denies any focal complaints, ie weakness, numbness ( numbness D4/D5 L, when he leans on his elbow). CT HD (-) AP : Transient dysarthria/ "heavy tongue" - resolved, no associated aphasia, focal weakness. at baseline now MRI BRAIN + subacute infarct R C R --likely small vessel mediated , though no clear etiology ( ? hypercoagable /chenmo related vs cardioembolic) may consider LOOP /OSEAS -can be done as outpt DOPPLERS (-) would add plavix along with ASA x 90 days, then revert back to ASA , if no GI contraindications BP controlled FU a1c Dc planning DR DUBON Problem List - Problems (1) Chest pain Code(s): R07.9 - CHEST PAIN, UNSPECIFIED Qualifiers: Chest pain type: unspecified Qualified Code(s): R07.9 - Chest pain, unspecified (2) TIA (transient ischemic attack) Code(s): G45.9 - TRANSIENT CEREBRAL ISCHEMIC ATTACK, UNSPECIFIED
[2019-07-23] MEDS: ASPIRIN 81 MG CHEWABLE TABLETS PO SCH (10:32)
[2019-07-23] MEDS: amLODIPine BESYLATE 5 MG TABLET (FP) PO SCH (10:32)
[2019-07-23] MEDS: FAMOTIDINE 20 MG TABLET PO SCH (10:33)
--- NOTE | 2019-07-23 10:50 | PN ---
Progress Note (short form) - Note Progress Note: s: no chest pain, palps, dizziness, dyspnea. heaviness in tongue feels better. Current Medications Generic Name Dose Route Start Last Admin Trade Name Stephanie PRN Reason Stop Dose Admin Acetaminophen 650 mg 07/20/19 22:49 07/21/19 11:30 Tylenol - PO 650 mg Q6H PRN Administration PAIN LEVEL 1-5 Amlodipine Besylate 5 mg 07/22/19 10:00 07/23/19 10:32 Norvasc - PO 5 mg DAILY [facility] Administration Aspirin 81 mg 07/21/19 13:15 07/23/19 10:32 Asa - PO 81 mg DAILY [facility] Administration Atorvastatin Calcium 80 mg 07/21/19 22:00 07/22/19 21:13 Lipitor - PO 80 mg HS [facility] Administration Famotidine 20 mg 07/21/19 10:00 07/23/19 10:33 Pepcid - PO 20 mg BID [facility] Administration Vital Signs Period Temp Pulse Resp BP Sys/Castañeda Pulse Ox Last 24 Hr 97.5 F-98.7 F 58-75 15-18 103-159/65-85 97-97 Constitutional: Yes: Well Nourished, No Distress, Calm Eyes: Yes: Conjunctiva Clear, EOM Intact HENT: Yes: Atraumatic, Normocephalic Neck: Yes: Supple, Trachea Midline Respiratory: Yes: Regular, CTA Bilaterally Gastrointestinal: Yes: Normal Bowel Sounds, Soft Cardiovascular: Yes: Regular Rate and Rhythm JVD: No Heart Sounds: Yes: S1, S2 Extremities: No: Cold Edema: No Integumentary: No: Jaundice Neurological: Yes: Alert, Oriented Psychiatric: No: Agitated CBC, BMP 07/20/19 17:35 07/20/19 17:35 Assessment/Plan EKG: sinus,incomplete IRBBB, LAFB, stable compared to prior CXR: no congestion echo 07/2019 mild conc LVH, nl LV function, impaired LV relaxation, mildly dilated LA/RA, mild MR, mild TR, mild ao root dilation tele: sinus chest pain - recent cath report reviewed from [facility] - 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
--- NOTE | 2019-07-23 11:20 | DS ---
Physical Examination Vital Signs: Vital Signs Temperature 98.7 F 07/23/19 10:00 Pulse Rate 75 07/23/19 10:00 Respiratory Rate 18 07/23/19 10:00 Blood Pressure 159/85 07/23/19 10:00 O2 Sat by Pulse Oximetry (%) 97 07/23/19 05:00 Constitutional: Yes: No Distress, Calm Cardiovascular: Yes: Regular Rate and Rhythm Respiratory: Yes: CTA Bilaterally Gastrointestinal: Yes: Normal Bowel Sounds, Soft. No: Tenderness Edema: No Labs: CBC, BMP 07/20/19 17:35 07/20/19 17:35 Discharge Summary Problems reviewed: Yes Reason For Visit: CHEST PAIN Current Active Problems Chest pain (Acute) GERD (gastroesophageal reflux disease) (Acute) TIA (transient ischemic attack) (Acute) Hospital Course: Admitted for chest pain , heaviness in speech , tongue feeling heavy and left arm heaviness cardiac enzymes x [address] head negative carotid doppler negative Sen by Neurology and Cardiology Echo-- normal EF MRI-- shows small lacunar subacute infarct in puri radiata Neurology recommending 90 days of Plavix along with ASA and afterwards only ASA Spoke with daughter he needs to see cardiology as outpt for OSEAS or loop recorder no further weakness of heaviness or chest pain Stable for dc home Condition: Fair - Instructions Referrals: Margot Jimenez MD [Primary Care Provider] - - Home Medications Comprehensive Discharge Medication List: Ambulatory Orders Famotidine [Pepcid -] 20 mg PO BID #14 tablet 12/31/18 Amlodipine Besylate [Norvasc -] 5 mg PO DAILY tablet 07/23/19 Aspirin [ASA -] 81 mg PO DAILY tab.chew 07/23/19 Atorvastatin Ca [Lipitor] 80 mg PO HS tablet 07/23/19 Clopidogrel Bisulfate [Plavix] 75 mg PO DAILY #90 tablet 07/23/19
--- NOTE | 2019-07-23 11:55 | EKG ---
Test Reason : Blood Pressure : / mmHG Vent. Rate : 078 BPM Atrial Rate : 078 BPM P-R Int : 172 ms QRS Dur : 110 ms QT Int : 388 ms P-R-T Axes : 055 -55 062 degrees QTc Int : 442 ms POOR DATA QUALITY, INTERPRETATION MAY BE ADVERSELY AFFECTED NORMAL SINUS RHYTHM WITH SINUS ARRHYTHMIA INCOMPLETE RIGHT BUNDLE BRANCH BLOCK LEFT ANTERIOR FASCICULAR BLOCK MODERATE VOLTAGE CRITERIA FOR LVH, MAY BE NORMAL VARIANT ABNORMAL ECG WHEN COMPARED WITH ECG OF 23-APR-2018 15:31, NO SIGNIFICANT CHANGE WAS FOUND Confirmed by BRIAN PEGUERO MD ([id number]) on 07/23/2019 11:54:48 AM Referred By: Confirmed By:BRIAN PEGUERO MD
[2019-07-23 13:15] VITALS: BP 128/82; PULSE 71; TEMP 97.2
== END 2019-07-23 14:06 | disposition home or self-care (01) ==
LOC: JER 14:46 → JERBED 20:57 → J2W 07-21 21:56
PROVIDERS: ADMIT Internal Medicine; ATTEND Internal Medicine
DX: R07.89 Other chest pain (principal); G45.9 Transient cerebral ischemic attack, unspecified; R47.81 Slurred speech; R53.1 Weakness; I10 Essential (primary) hypertension; E78.5 Hyperlipidemia, unspecified; K21.9 Gastro-esophageal reflux disease without esophagitis; C18.9 Malignant neoplasm of colon, unspecified; Z98.61 Coronary angioplasty status; Z79.82 Long term (current) use of aspirin; Z92.21 Personal history of antineoplastic chemotherapy; Z85.72 Personal history of non-Hodgkin lymphomas
CPT/HCPCS: 36415; 70450-TC; 70551-TC; 71046-TC-FY; 80053; 82550; 84484; 85025; 85610; 85730; 93005; 93010; 93306-TC; 93880-TC; 99285-25; G0378

== ENCOUNTER 2020-06-28 04:55 | Day surgery (SDC) | payer OTHER ==
[2020-06-24 11:01] VITALS: BMI 35.5
[2020-06-28 11:15] VITALS: TEMP 97.7
[2020-06-28 11:29] VITALS: BP 138/65; PULSE 63
== END 2020-06-28 12:03 | disposition home or self-care (01) ==
LOC: JASU-ENDO 04:55
PROVIDERS: ATTEND Internal Medicine Gastroenterology
PROC: 0DBL8ZX Excision of Transverse Colon, Via Natural or Artificial Opening Endoscopic, Diagnostic (ICD-10-PCS; principal; 2020-06-28 11:00)
DX: Z85.038 Personal history of other malignant neoplasm of large intestine (principal); Z98.0 Intestinal bypass and anastomosis status
CPT/HCPCS: 88305-TC

== ENCOUNTER 2020-07-13 11:54 | Emergency (ER) | payer OTHER ==
[2020-07-13 12:09] VITALS: BMI 35.2
[2020-07-13] MEDS ORDERED: BAMLANIVIMAB 700 MG in SODIUM CHLORIDE 180 ML IVPB ONE (12:20)
[2020-07-13 13:32] LABS: CALCIUM 8.7 mg/dL (8.5-10.1)
[2020-07-13 13:33] LABS: ALBUMIN 3.7 g/dl (3.4-5.0); BLOOD UREA NITROGEN 15.9 mg/dL (7-18)
[2020-07-13 13:37] LABS: BILIRUBIN,TOTAL 0.3 mg/dL (0.2-1)
[2020-07-13 13:38] LABS: TOT PROT 6.8 g/dl (6.4-8.2)
[2020-07-13 13:42] LABS: BASO % 0.6 % (0-2.0); EOS % 1.5 % (0-4.5); HEMATOCRIT 42.8 % (35.4-49); HEMOGLOBIN 14.3 GM/dL (11.7-16.9); LYMPH % 27.5 % (8-40); MCH 28.5 pg (25.7-33.7); MCHC 33.5 g/dl (32.0-35.9); MEAN CELL VOLUME 85.3 fl (80-96); MONO % 14.7 % (3.8-10.2); NEUT % 55.7 % (42.8-82.8); RBC 5.01 M/mm3 (4.00-5.60); RDW 13.7 % (11.9-15.9); WHITE BLOOD COUNT 3.3 K/mm3 (4.0-10.0)
[2020-07-13 14:41] VITALS: TEMP 98.5
[2020-07-13 15:06] LABS: PLATELET ESTIMATE UNABLE TO ENUMERATE
[2020-07-13 16:22] VITALS: BP 134/79; PULSE 79
== END 2020-07-13 16:18 | disposition home or self-care (01) ==
LOC: JCOVINFU 11:54
DX: U07.1 COVID-19 (principal)
CPT/HCPCS: 36415; 71046-TC-FY; 80053; 85025; 99284-25; M0239; Q0239

== ENCOUNTER 2020-12-10 18:16 | Emergency (ER) | payer OTHER ==
[2020-12-10 18:26] VITALS: BP 125/81; PULSE 94; TEMP 98.2; BMI 37.5
[2020-12-10] MEDS ORDERED: DIPHTH,PERTUSS(ACELL),TET 0.5 ML DISP.SYRIN IM ONE ×2 (18:50→19:05)
== END 2020-12-10 20:49 | disposition home or self-care (01) ==
LOC: JERFT 18:16
PROC: 3E0234Z Introduction of Serum, Toxoid and Vaccine into Muscle, Percutaneous Approach (ICD-10-PCS; principal; 2020-12-10)
DX: S61.432A Puncture wound without foreign body of left hand, initial encounter (principal)
CPT/HCPCS: 73130-TC-LT-FY; 90471; 90715; 99284-25

== ENCOUNTER 2021-10-24 03:55 | Day surgery (SDC) | payer OTHER ==
[2021-10-20 16:20] VITALS: BMI 35.2
[2021-10-24] MEDS ORDERED: ceFAZolin 2 GRAM PREMIX BAG IVPB ONE (11:50)
[2021-10-24] MEDS ORDERED: MIDAZOLAM HCL 2 MG/2 ML SINGLE DOSE VIAL ONE (12:20)
[2021-10-24] MEDS ORDERED: ceFAZolin SODIUM 1 GM VIAL IVPB ONE (12:24)
[2021-10-24 14:03] VITALS: BP 154/85; PULSE 67; TEMP 97.6
== END 2021-10-24 15:50 | disposition home or self-care (01) ==
LOC: JASU-SURG 03:55
PROVIDERS: ATTEND Urology
PROC: 0TF3XZZ Fragmentation in Right Kidney Pelvis, External Approach (ICD-10-PCS; principal; 2021-10-24 11:15)
DX: N20.0 Calculus of kidney (principal)

== ENCOUNTER 2022-01-27 09:20 | Inpatient (IN) | payer OTHER ==
[2022-01-27] MEDS ORDERED: DIPHTH,PERTUSS(ACELL),TET 0.5 ML DISP.SYRIN IM ONE ×2 (10:45→11:34)
[2022-01-27] MEDS ORDERED: AMPICILLIN NA/SULBACTAM NA 3 GM in SODIUM CHLORIDE 100 ML IVPB ONE (11:50)
[2022-01-27] MEDS ORDERED: AMPICILLIN SODIUM 1 GM VIAL ONE (11:59)
[2022-01-27] MEDS ORDERED: AMPICILLIN SODIUM 2 GM VIAL ONE (11:59)
[2022-01-27 12:13] LABS: BASO % 0.5 % (0-2.0); EOS % 1.7 % (0-4.5); HEMATOCRIT 39.5 % (35.4-49); MCH 28.5 pg (25.7-33.7); MCHC 32.8 g/dl (32.0-35.9); MEAN CELL VOLUME 86.7 fl (80-96); MEAN PLT VOLUME 10.8 fl (7.5-11.1); NEUT % 67.8 % (42.8-82.8); PLATELET COUNT 156 10^3/uL (134-434); RBC 4.56 M/mm3 (4.00-5.60); RDW 13.9 % (11.9-15.9); WHITE BLOOD COUNT 4.7 K/mm3 (4.0-10.0)
[2022-01-27 12:36] LABS: CALCIUM 8.3 mg/dL (8.5-10.1)
[2022-01-27 12:37] LABS: ALBUMIN 3.4 g/dl (3.4-5.0); BLOOD UREA NITROGEN 22.2 mg/dL (7-18)
[2022-01-27 12:40] LABS: CREATININE 0.8 mg/dL (0.55-1.3)
[2022-01-27 12:41] LABS: BILIRUBIN,TOTAL 0.6 mg/dL (0.2-1)
[2022-01-27 12:42] LABS: TOT PROT 6.4 g/dl (6.4-8.2)
[2022-01-27] MEDS ORDERED: ACETAMINOPHEN 325 MG TABLET (FP) PO PRN (20:10)
[2022-01-27] MEDS ORDERED: POLYETHYLENE GLYCOL (HEALTHYLAX) 3350 17 GM PACKET PO PRN (20:10)
[2022-01-27] MEDS: AMPICILLIN NA/SULBACTAM NA 3 GM in SODIUM CHLORIDE 100 ML IVPB SCH (22:58)
[2022-01-28] MEDS: AMPICILLIN NA/SULBACTAM NA 3 GM in SODIUM CHLORIDE 100 ML IVPB SCH ×4 (03:14→21:31)
[2022-01-28 09:00] LABS: BASO % 0.8 % (0-2.0); EOS % 2.4 % (0-4.5); HEMATOCRIT 43.5 % (35.4-49); HEMOGLOBIN 14.6 GM/dL (11.7-16.9); LYMPH % 19.7 % (8-40); MCH 28.9 pg (25.7-33.7); MCHC 33.5 g/dl (32.0-35.9); MEAN CELL VOLUME 86.2 fl (80-96); MONO % 8.8 % (3.8-10.2); NEUT % 68.3 % (42.8-82.8); PLATELET COUNT 159 10^3/uL (134-434); RBC 5.05 M/mm3 (4.00-5.60); RDW 14.2 % (11.9-15.9); WHITE BLOOD COUNT 4.8 K/mm3 (4.0-10.0)
[2022-01-28 09:07] LABS: INR 1.01 (0.83-1.09); PROTHROMBIN TIME (PATIENT) 11.6 SEC (9.7-13.0)
[2022-01-28 09:09] LABS: ACTIVATED PTT 27.6 SECONDS (25.2-36.5)
[2022-01-28] MEDS: ENOXAPARIN NA (PORCINE) 40 MG/0.4 ML DISP.SYRIN SQ SCH (09:15)
[2022-01-28 09:21] LABS: CALCIUM 8.9 mg/dL (8.5-10.1); MAGNESIUM 2.5 mg/dL (1.8-2.4)
[2022-01-28 09:22] LABS: BLOOD UREA NITROGEN 18.8 mg/dL (7-18)
[2022-01-28 09:24] LABS: CREATININE 0.9 mg/dL (0.55-1.3)
[2022-01-28] MEDS ORDERED: AMPICILLIN NA/SULBACTAM NA 3 GM VIAL ONE ×2 (14:04→21:11)
[2022-01-28] MEDS ORDERED: SODIUM CHLORIDE 100 ML IVPB ONE ×2 (14:04→21:11)
[2022-01-28 14:08] VITALS: BMI 30.2
[2022-01-28] MEDS: ASCORBIC ACID 500 MG TABLET (FP) PO SCH (21:32)
[2022-01-29] MEDS ORDERED: AMPICILLIN NA/SULBACTAM NA 3 GM VIAL ONE ×2 (02:01→09:09)
[2022-01-29] MEDS ORDERED: SODIUM CHLORIDE 100 ML IVPB ONE ×2 (02:01→09:10)
[2022-01-29] MEDS: AMPICILLIN NA/SULBACTAM NA 3 GM in SODIUM CHLORIDE 100 ML IVPB SCH ×2 (03:22→09:14)
[2022-01-29] MEDS: AMINO ACIDS/PROTEIN HYDROLYS 30 ML LIQUID.PKT PO SCH ×2 (09:14→09:22)
[2022-01-29] MEDS: MULTIVITAMINS THER W-MINERALS COMBO TABLET (FP) PO SCH (09:14)
[2022-01-29] MEDS: ENOXAPARIN NA (PORCINE) 40 MG/0.4 ML DISP.SYRIN SQ SCH (09:14)
[2022-01-29] MEDS: ASCORBIC ACID 500 MG TABLET (FP) PO SCH ×2 (09:15→22:03)
[2022-01-29] MEDS ORDERED: PIPERACILLIN/TAZOBACTAM 3.375 GM VIAL IVPB ONE (14:36)
[2022-01-29] MEDS ORDERED: DEXTROSE 5%-WATER - 50 ML IVPB ONE (14:37)
[2022-01-29] MEDS: VANCOMYCIN/WATER FOR INJ (PEG) 1,000 MG/200 ML BAG IVPB SCH (14:40)
[2022-01-29] MEDS: PIPERACILLIN/TAZOB 3.375 GM 3.375 GM in DEXTROSE 5%-WATER - 50 ML IVPB SCH ×2 (14:40→17:43)
[2022-01-29 16:01] LABS: EOS % 3.2 % (0-4.5); HEMATOCRIT 40.3 % (35.4-49); HEMOGLOBIN 13.3 GM/dL (11.7-16.9); LYMPH % 24.3 % (8-40); MCH 28.5 pg (25.7-33.7); MEAN CELL VOLUME 86.3 fl (80-96); MEAN PLT VOLUME 9.8 fl (7.5-11.1); MONO % 8.9 % (3.8-10.2); NEUT % 62.6 % (42.8-82.8); PLATELET COUNT 165 10^3/uL (134-434); RBC 4.66 M/mm3 (4.00-5.60); RDW 14.1 % (11.9-15.9); WHITE BLOOD COUNT 3.9 K/mm3 (4.0-10.0)
[2022-01-30] MEDS: PIPERACILLIN/TAZOB 3.375 GM 3.375 GM in DEXTROSE 5%-WATER - 50 ML IVPB SCH ×3 (01:29→18:23)
[2022-01-30] MEDS: VANCOMYCIN/WATER FOR INJ (PEG) 1,000 MG/200 ML BAG IVPB SCH ×2 (01:31→12:59)
[2022-01-30] MEDS ORDERED: PIPERACILLIN/TAZOBACTAM 3.375 GM VIAL IVPB ONE ×2 (10:03→17:24)
[2022-01-30] MEDS ORDERED: DEXTROSE 5%-WATER - 50 ML IVPB ONE ×2 (10:04→17:25)
[2022-01-30] MEDS: ENOXAPARIN NA (PORCINE) 40 MG/0.4 ML DISP.SYRIN SQ SCH (10:09)
[2022-01-30] MEDS: MULTIVITAMINS THER W-MINERALS COMBO TABLET (FP) PO SCH (10:09)
[2022-01-30] MEDS: ASCORBIC ACID 500 MG TABLET (FP) PO SCH ×2 (10:09→22:53)
[2022-01-30] MEDS: AMINO ACIDS/PROTEIN HYDROLYS 30 ML LIQUID.PKT PO SCH (10:16)
[2022-01-30] MEDS: COLLAGENASE CLOSTRIDIUM HIST. 30 GRAMS TUBE TP SCH (15:14)
[2022-01-31] MEDS ORDERED: DEXTROSE 5%-WATER - 50 ML IVPB ONE ×2 (00:49→08:54)
[2022-01-31] MEDS ORDERED: PIPERACILLIN/TAZOBACTAM 3.375 GM VIAL IVPB ONE ×2 (00:49→08:54)
[2022-01-31] MEDS: VANCOMYCIN/WATER FOR INJ (PEG) 1,000 MG/200 ML BAG IVPB SCH ×2 (01:05→12:19)
[2022-01-31] MEDS: PIPERACILLIN/TAZOB 3.375 GM 3.375 GM in DEXTROSE 5%-WATER - 50 ML IVPB SCH ×2 (03:04→09:02)
[2022-01-31 07:25] VITALS: RESP 19
[2022-01-31] MEDS: AMINO ACIDS/PROTEIN HYDROLYS 30 ML LIQUID.PKT PO SCH (08:58)
[2022-01-31] MEDS: ENOXAPARIN NA (PORCINE) 40 MG/0.4 ML DISP.SYRIN SQ SCH (09:02)
[2022-01-31] MEDS: MULTIVITAMINS THER W-MINERALS COMBO TABLET (FP) PO SCH (09:02)
[2022-01-31] MEDS: ASCORBIC ACID 500 MG TABLET (FP) PO SCH (09:02)
[2022-01-31] MEDS: COLLAGENASE CLOSTRIDIUM HIST. 30 GRAMS TUBE TP SCH (09:12)
[2022-01-31 09:16] VITALS: BP 131/86; PULSE 87; TEMP 97.7
== END 2022-01-31 15:44 | disposition home or self-care (01) | DRG 603 ==
LOC: JER 09:20 → JERBED 11:53 → J8W 23:35
PROVIDERS: ADMIT Internal Medicine; ATTEND Internal Medicine
DX: L03.031 Cellulitis of right toe (principal); I10 Essential (primary) hypertension; L08.9 Local infection of the skin and subcutaneous tissue, unspecified; E78.5 Hyperlipidemia, unspecified; A49.02 Methicillin resistant Staphylococcus aureus infection, unspecified site; R42 Dizziness and giddiness; S90.414A Abrasion, right lesser toe(s), initial encounter; D64.9 Anemia, unspecified; Z86.73 Personal history of transient ischemic attack (TIA), and cerebral infarction without residual deficits; Z85.038 Personal history of other malignant neoplasm of large intestine; Z85.72 Personal history of non-Hodgkin lymphomas; Z96.653 Presence of artificial knee joint, bilateral; X58.XXXA Exposure to other specified factors, initial encounter; Y92.480 Sidewalk as the place of occurrence of the external cause
CPT/HCPCS: 36415; 71046-TC-FY; 73660-TC-FY; 80048; 80053; 83735; 85025; 85610; 85651; 85730; 87040; 87070; 87077; 87186; 87205; 90715; 93005; 93010; 99285-25; C9803-CS; U0003; U0005